=== PATIENT | male | born 1950 | race Caucasian/White ===

== ENCOUNTER 2020-03-12 17:44 | Emergency (ER) | payer OTHER ==
[~2020-03-12] VITALS: Ht 180.3 cm; Wt 83.9 kg
--- NOTE | ~2020-03-12 | EMS ---
[address] [address] EMS Patient Care Report Name: OMAR ARAIZA Room #: DEP RYAN Sanders#: [id number] Admission: 03/12/20 Attend Phys: Discharge: 03/12/20 Date of : 50 Report #: [id number] THIS REPORT FOR: //name// Report Transmitted: 03/12/2020 22:25 EMS Care Summary [facility] Incident [id number] @ 03/12/2020 16:59 Incident Location [address] [place] [address] Patient OMAR ARAIZA Male, 69 Years 1950 Patient Address [address] [place] [address] Patient History Breast Cancer,Cardiac Condition - Other, Patient Allergies Latex allergy, Patient Medications None Reported, Chief Complaint Dizziness Disposition Transported No Lights/[place] Dispatch Reason Falls Transported To [facility] Narrative Patient found in the front [facility] outside of the main dining [place] on his knees with his arms resting on the chair in front of him. Pt had a personal O2 concentrator via nasal cannula at 2 lpm. Patient states that he had a few [address] [address] EMS Patient Care Report Name: OMAR ARAIZA Room #: DEP Tommy#: [id number] Admission: 03/12/20 Attend Phys: Discharge: 03/12/20 Date of : 50 Report #: [id number] glasses of wine before he went to dinner had dinner had probably a few more glasses of wine at dinner which was confirmed by assisted-living staff. Patient stood up from the dinner table use his walker to walk out to the lobby as he got into the lobby he became dizzy and fell down to his knees. Patient stated at this time that he was without pain and didn???t feel that he needed to go to the hospital. Patient denied loss of consciousness. Patient was assisted to his feet by fire and EMS and was unable to stand without assistance patient was moved to a chair by fire and EMS crews. EMS expressed concern for patient???s new onset of weakness and dizziness as he stood up from the dinner table. EMS was able to convince a patient that seeking medical evaluation from a doctor would be in his best interest. Patient agreed to go for medical evaluation at an emergency room. Patient was assisted to ambulance cot covered with a sheet and secured with seat belts. Patient was moved to ambulance without incident. EMS alerted [facility] on [employer] system prior to arrival. As EMS arrived at the hospital pt stated that we shouldn't take blood pressures on his arms because they were never accurate after the mastectomy. Patient was delivered to ER bed 4 without change. Patient was lifted via four person sheet lift to hospital bed and secured with locked side rails in the upright position. EMS gave report to receiving RN transferring patient and care to hospital staff Initial Vitals @17:11P: 91,BP: 101/64,SpO2: 94, @17:09P: 88,SpO2: 91,WV Suspected: false @17:08P: 90,R: 18,BP: 83/56,Pain: 0/10,GCS: 15,Glucose: 101,SpO2: 90,Revised Trauma: 11, @17:23P: 89,SpO2: 92,WV Suspected: false @17:33P: 89,R: 18,BP: 83/56,GCS: 15,SpO2: 95,Revised Trauma: 11, Assessments @17:15MENTAL:No Abnormalities,SKIN:No Abnormalities,HEENT:Head/Face: No Abnormalities,Eyes: No Abnormalities,Neck/Airway: No Abnormalities,LUNG SOUNDS:General: No Abnormalities,Left Upper: No Abnormalities,Right Upper: No Abnormalities,Left Lower: No Abnormalities,Right Lower: No Abnormalities,ABDOMEN:General: No Abnormalities,Left Upper: No Abnormalities,Right Upper: No Abnormalities,Left Lower: No Abnormalities,Right Lower: No Abnormalities,PELVIS//GI:No Abnormalities,EXTREMITIES:Left Arm: No Abnormalities,Right Arm: No Abnormalities,Left Leg: No Abnormalities,Right Leg: No Abnormalities,PULSE:NEURO:No Abnormalities, Impression Generalized Weakness Procedures @17:2312-Lead ECG@17:15Normal Saline (.9% NaCl) 200cc (20 ga) Site: [place] [address] EMS Patient Care Report Name: TEODORAOMAR Room #: DEP Tommy#: [id number] Admission: 03/12/20 Attend Phys: Discharge: 03/12/20 Date of : 50 Report #: [id number] Antecubital-LeftResponse: UnchangedSucceeded@PTAOxygen FlowRate: 2 Device: Nasal Cannula (NC) Response: UnchangedSucceeded 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,Oxygen FlowRate: 2 Device: Nasal Cannula (NC) Response: UnchangedSucceeded, 16:57,Call Received 16:57,Psap Call 16:59,Dispatched 16:59,En Route 17:03,On Scene 17:05,At Patient 17:08,BP: 83/56 M,PULSE: 90,RR: 18 R,SPO2: 90 Ox,ETCO2: ,B,PAIN: 0,GCS: 15, 17:09,BP: / M,PULSE: 88,RR: R,SPO2: 91 Ox,ETCO2: ,BG: ,PAIN: ,GCS: , 17:11,BP: 101/64 M,PULSE: 91,RR: R,SPO2: 94 Ox,ETCO2: ,BG: ,PAIN: ,GCS: , 17:15,Normal Saline (.9% NaCl) 200cc 20 ga Site: Antecubital-Left,Response: UnchangedSucceeded, 17:23,12-Lead ECG, 17:23,BP: / M,PULSE: 89,RR: R,SPO2: 92 Ox,ETCO2: ,BG: ,PAIN: ,GCS: , 17:24,Depart Scene 17:33,BP: 83/56 M,PULSE: 89,RR: 18 R,SPO2: 95 Ox,ETCO2: ,BG: ,PAIN: ,GCS: 15, 17:34,At Destination 18:01,Call Closed Disclaimer v1.1 Copyright 2020 [email or web address] This EMS Care Summary contains data elements from the applicable legal record (which may be displayed differently). It is designed to provide pertinent information for the following purposes: continuity of care, clinical quality, and state data reporting. The complete legal record is available to ED staff and administrators of the receiving hospital in [employer]'s Patient Tracker. All data is provided "as is."
[2020-03-12 19:39] LABS: ABSOLUTE NEUTROPHILS 3.1 thou/uL (1.4-8.2); EOSINOPHILS 1.7 % (0.0-3.0); HEMATOCRIT 36.7 % (42.0-52.0); HEMOGLOBIN 12.2 gm/dL (14.0-18.0); LYMPHOCYTES 16.5 % (24.0-44.0); MCH 35.8 pg (26.0-34.0); MCHC 33.1 g/dL (28.0-37.0); MCV 108.1 fL (80.0-100.0); MONOCYTES 8.8 % (1.0-8.0); PLATELET COUNT 149 thou/uL (150-400); RBC 3.39 mil/uL (4.50-6.00); RDW 13.7 % (10.5-14.5); WBC 4.3 thou/uL (4.0-11.0)
[2020-03-12 19:50] LABS: CALCIUM 8.1 mg/dL (8.5-10.1); CREATININE 0.7 mg/dL (0.7-1.3); POTASSIUM 3.8 mmol/L (3.5-5.1)
[2020-03-12 19:58] LABS: ALBUMIN 2.9 g/dL (3.4-5.0); DIRECT BILIRUBIN 0.1 mg/dL (<0.1-0.2); TOTAL BILIRUBIN 0.3 mg/dL (0.2-1.0); TOTAL PROTEIN 6.2 g/dL (6.4-8.2)
[2020-03-12 20:02] LABS: APTT 27.8 Seconds (24.5-32.8); PROTIME 10.7 Seconds (9.3-11.4)
[2020-03-12] MEDS ORDERED: CARVEDILOL25 MG PO (21:27)
[2020-03-12] MEDS ORDERED: K-DUR 20 MEQ T20 MEQ PO (21:27)
[2020-03-12] MEDS ORDERED: ELIQUIS5 MG PO (21:27)
[2020-03-12] MEDS ORDERED: TRELEGY ELLIPT1 EACH INH (21:27)
[2020-03-12 21:28] VITALS: BP 118/64
== END 2020-03-12 21:46 | disposition home or self-care (01) ==
LOC: ER 17:44 → EDBD 17:44 → ER 21:46
PROVIDERS: Emergency Medicine
DX: F10.10 Alcohol abuse, uncomplicated (principal); I95.1 Orthostatic hypotension; J44.9 Chronic obstructive pulmonary disease, unspecified; Z79.899 Other long term (current) drug therapy; Z91.040 Latex allergy status; Z87.891 Personal history of nicotine dependence; Y90.6 Blood alcohol level of 120-199 mg/100 ml